=== PATIENT | female | born 1950 | race Caucasian/White ===

== ENCOUNTER 2020-06-09 15:13 | Outpatient (REF) | payer MEDICARE, SELFPAY ==
[2020-06-09 16:47] LABS: MANUAL DIFF FLAG NO
[2020-06-09 16:52] LABS: Basophils Percent Auto 0.5 % (0-2); Eosinophils Percent Auto 0.2 % (0-4); Hematocrit 42.9 % (37-47); Imm Gran Abs Auto 0.02 X10*3/uL (0.00-0.03); Imm Gran Pct Auto 0.2 % (0.0-0.4); Lymphocytes Absolute Auto 1.3 X10*3/uL (1.2-4.9); Lymphocytes Percent Auto 15.2 % (20-40); Mean Corpuscular HGB Conc 32.6 g/dl (31.0-35.0); Mean Corpuscular Hemoglobin 29.7 pg (27.0-33.0); Mean Corpuscular Volume 91.1 fL (80-98); Monocytes Absolute Auto 0.4 X10*3/uL (0.1-1.2); Neutrophils Absolute Auto 6.6 X10*3/uL (2.0-8.3); Neutrophils Percent Auto 78.9 % (45-73); Platelet Count 206 X10*3/uL (160-400); Red Blood Count 4.71 X10*6/uL (4.20-5.50); Red Cell Distribution Width 12.2 % (11.0-16.0); White Blood Count 8.4 X10*3/uL (4.8-10.8)
[2020-06-09 17:14] LABS: Alanine Aminotransferase 14 U/L (0-31); Albumin Level 4.5 g/dL (3.5-5.0); Alkaline Phosphatase 80 U/L (39-117); Anion Gap 19 (12-20); Aspartate Amino Transferase 19 U/L (5-31); Bilirubin Direct 0.2 mg/dL (0.0-0.5); Bilirubin Total 0.4 mg/dL (0.0-1.0); Blood Urea Nitrogen 18 mg/dL (9-16); Calcium 9.5 mg/dL (8.4-10.2); Carbon Dioxide 22 mmol/L (22-29); Chloride 105 mmol/L (96-108); Estimated Glomerular Filt Rate 56; Glucose Random 120 mg/dL (60-115); Potassium 4.9 mmol/l (3.3-5.1); Sodium 141 mmol/L (135-145)
[2020-06-09 17:27] LABS: TSH reflex Free T4 0.54 mIU/mL (0.32-4.0)
[2020-06-10 07:32] LABS: LDL Cholesterol Direct 101 mg/dL (<100)
== END 2020-06-09 15:14 | disposition home or self-care (01) ==
LOC: HO.HMGCLDS 15:13
PROVIDERS: PCP Internal Medicine; Visit Provider Internal Medicine
DX: E03.8 Other specified hypothyroidism (principal)
CPT/HCPCS: 36415; 80048; 80076; 83721; 84443; 85025

== ENCOUNTER 2020-12-05 10:55 | Outpatient (REF) | payer MEDICARE, SELFPAY ==
[2020-12-05 13:45] LABS: MANUAL DIFF FLAG NO
[2020-12-05 13:48] LABS: Basophils Percent Auto 0.5 % (0-2); Eosinophils Percent Auto 0.5 % (0-4); Hematocrit 44.9 % (37-47); Hemoglobin 14.5 g/dl (12.0-16.0); Imm Gran Abs Auto 0.02 X10*3/uL (0.00-0.03); Imm Gran Pct Auto 0.2 % (0.0-0.4); Lymphocytes Absolute Auto 1.4 X10*3/uL (1.2-4.9); Lymphocytes Percent Auto 17.7 % (20-40); Mean Corpuscular HGB Conc 32.3 g/dl (31.0-35.0); Mean Corpuscular Hemoglobin 29.8 pg (27.0-33.0); Mean Corpuscular Volume 92.2 fL (80-98); Mean Platelet Volume 12.1 fL (9.4-12.3); Monocytes Absolute Auto 0.6 X10*3/uL (0.1-1.2); Monocytes Percent Auto 7.9 % (2-11); Neutrophils Absolute Auto 5.9 X10*3/uL (2.0-8.3); Neutrophils Percent Auto 73.2 % (45-73); Platelet Count 220 X10*3/uL (160-400); Red Blood Count 4.87 X10*6/uL (4.20-5.50); Red Cell Distribution Width 12.7 % (11.0-16.0); White Blood Count 8.1 X10*3/uL (4.8-10.8)
[2020-12-05 13:54] LABS: Glucose Urine UA NEG (NEG); Leukocyte Esterase Urine NEG (NEG); Nitrite Urine NEG (NEG); Specific Gravity - Urine <= 1.005 (1.005-1.025); Urine Blood NEG (NEG); Urine Ketones NEG (NEG); Urine Protein NEG (NEG-TRACE)
[2020-12-05 14:02] LABS: Appearance Urine CLEAR; Color Urine YELLOW
[2020-12-05 14:04] LABS: Alanine Aminotransferase 14 U/L (0-31); Albumin Level 4.7 g/dL (3.5-5.0); Alkaline Phosphatase 92 U/L (39-117); Anion Gap 15 (12-20); Aspartate Amino Transferase 22 U/L (5-31); Bilirubin Total 0.6 mg/dL (0.0-1.0); Blood Urea Nitrogen 13 mg/dL (9-16); Calcium 10.2 mg/dL (8.4-10.2); Carbon Dioxide 26 mmol/L (22-29); Chloride 105 mmol/L (96-108); Estimated Glomerular Filt Rate 57; Glucose Random 82 mg/dL (60-115); Potassium 4.6 mmol/L (3.3-5.1); Sodium 141 mmol/L (135-145); Total Protein 7.4 g/dL (6.5-8.0)
[2020-12-05 14:25] LABS: TSH reflex Free T4 0.83 uIU/mL (0.32-4.0)
== END 2020-12-05 10:56 | disposition home or self-care (01) ==
LOC: HO.HMGCLDS 10:55
PROVIDERS: PCP Internal Medicine; Visit Provider Internal Medicine
DX: Z00.01 Encounter for general adult medical examination with abnormal findings (principal); Z13.31 Encounter for screening for depression; E03.8 Other specified hypothyroidism
CPT/HCPCS: 36415; 80053; 81003; 84443; 85025

== ENCOUNTER 2021-12-07 10:36 | Outpatient (REF) | payer MEDICARE, SELFPAY ==
[2021-12-07 13:41] LABS: MANUAL DIFF FLAG NO
[2021-12-07 13:51] LABS: Basophils Percent Auto 0.4 % (0-2); Eosinophils Absolute Auto 0.1 X10*3/uL (0.0-0.4); Eosinophils Percent Auto 0.7 % (0-4); Hematocrit 43.6 % (37.0-47.0); Hemoglobin 14.1 g/dl (12.0-16.0); Imm Gran Abs Auto 0.02 X10*3/uL (0.00-0.03); Imm Gran Pct Auto 0.3 % (0.0-0.4); Lymphocytes Absolute Auto 1.5 X10*3/uL (1.2-4.9); Lymphocytes Percent Auto 21.9 % (20-40); Mean Corpuscular HGB Conc 32.3 g/dl (31.0-35.0); Mean Corpuscular Hemoglobin 29.6 pg (27.0-33.0); Mean Corpuscular Volume 91.4 fL (80.0-98.0); Mean Platelet Volume 11.6 fL (9.4-12.3); Monocytes Absolute Auto 0.5 X10*3/uL (0.1-1.2); Monocytes Percent Auto 7.7 % (2-11); Neutrophils Absolute Auto 4.7 x10*3/uL (2.0-8.3); Platelet Count 219 X10*3/uL (160-400); Red Blood Count 4.77 X10*6/uL (4.20-5.50); Red Cell Distribution Width 12.7 % (11.0-16.0); White Blood Count 6.9 X10*3/uL (4.8-10.8)
[2021-12-07 14:07] LABS: Alanine Aminotransferase 15 U/L (0-31); Albumin Level 4.6 g/dL (3.5-5.0); Alkaline Phosphatase 82 U/L (39-117); Anion Gap 12 (12-20); Aspartate Amino Transferase 19 U/L (5-31); Bilirubin Total 0.5 mg/dL (0.0-1.0); Blood Urea Nitrogen 17 mg/dL (9-16); Calcium 9.8 mg/dL (8.4-10.2); Carbon Dioxide 25 mmol/L (22-29); Chloride 106 mmol/L (96-108); Estimated Glomerular Filt Rate > 60; Glucose Random 80 mg/dL (60-115); Sodium 138 mmol/L (135-145); Total Protein 7.1 g/dL (6.5-8.0)
[2021-12-07 14:27] LABS: TSH reflex Free T4 1.02 uIU/mL (0.32-4.0)
== END 2021-12-07 10:37 | disposition home or self-care (01) ==
LOC: HO.HMGCLDS 10:36
PROVIDERS: PCP Internal Medicine; Visit Provider Internal Medicine
DX: Z00.01 Encounter for general adult medical examination with abnormal findings (principal); E03.8 Other specified hypothyroidism
CPT/HCPCS: 36415; 80053; 84443; 85025

== ENCOUNTER 2022-01-04 09:21 | Outpatient (REF) | payer MEDICARE, SELFPAY ==
--- NOTE | ~2022-01-04 | MM_ITS ---
EXAMINATION: MM SCREENING DIGITAL BREAST TOMOSYNTHESIS, BILATERAL CLINICAL INFORMATION: Screening. Asymptomatic. The lifetime risk of breast cancer based on the Tyrer-Cuzick Model is 2.5%. COMPARISON: Mammography: January 01, 2019 and studies dating back to November 11, 2009 TECHNIQUE: Digital breast tomosynthesis is performed in both the craniocaudal and mediolateral oblique views along with computer-aided detection (CAD). Synthesized 2D images are generated from the tomosynthesis. FINDINGS: There are scattered areas of fibroglandular density (ACR BI-RADS breast composition Category b). There is a stable grouping of calcifications seen about the deep lateral aspect of the left breast. No new abnormal dominant mass or more suspicious grouping of microcalcifications is identified within the bilateral breast. MM/MM tomosynthesis screening BI IMPRESSION: No significant changes from prior exam. ASSESSMENT: BI-RADS 2: Benign RECOMMENDATION: Routine annual mammography screening. This patient's information was entered into a reminder system with a target due date for their next mammogram.
--- NOTE | ~2022-01-04 | MM_ITS ---
EXAMINATION: BONE DENSITOMETRY CLINICAL INDICATION: Screening. COMPARISON: Previous BD dated 12/19/2017 and baseline BD dated 08/18/2006. TECHNIQUE: Using a Spotivate DXA System (software version: 13.1) manufactured by [employer], dual-energy x-ray absorptiometry was performed of the lumbar spine and left hip. The images are of good technical quality. Summary results are attached. FINDINGS: AP SPINE L1-L4: Current: BMD 0.667 g/cm2, Z-score -2.0, T-score -4.3, osteoporosis, 9.6% decrease from previous, 13.8% decrease from baseline (<5% change is not significant). Prior: BMD 0.738 g/cm2. Baseline: BMD 0.774 g/cm2. LEFT FEMUR, NECK: Current: BMD 0.633 g/cm2, Z-score -0.7, T-score -2.9, osteoporosis. Prior: BMD 0.646 g/cm2. Baseline: BMD 0.696 g/cm2. LEFT FEMUR, TOTAL: Current: BMD 0.619 g/cm2, Z-score -1.1, T-score -3.1, osteoporosis, 5.9% decrease from previous, 15.1% decrease from baseline (<5% change is not significant). Prior: BMD 0.658 g/cm2. Baseline: BMD 0.729 g/cm2. IDENTIFIED RISK FACTORS: Menopause, osteoporosis. HISTORY OF FRACTURE: None listed. MEDICATIONS: Calcium, vitamin D. MM/XR DEXA axial skeleton IMPRESSION: 1. DIAGNOSIS: Osteoporosis based on the lowest T-score value of -4.3 in the lumbar spine applying World Health Organization criteria. 2. 10-YEAR FRACTURE RISK PREDICTION, FRAX: According to the guidelines, FRAX calculation should only be performed on patients in the osteopenia bone density category. Therefore, FRAX was not performed on this patient. 3. Treatment Recommendations: NOF guidelines recommend consideration for treatment in postmenopausal women and men age 50 and older presenting with the following: -A hip or vertebral (clinical or morphometric) fracture. -T-score less than or equal to -2.5 at the femoral neck or spine after appropriate evaluation to exclude secondary causes. -Low bone mass at the hip or spine and a 10-year fracture probability by FRAX of greater than or equal to 3% for hip fracture or greater than or equal to 20% for major osteoporotic fracture based on the [place] adapted WHO algorithm. 4. Other Recommendations: All treatment decisions require clinical judgment and consideration of individual patient factors, including patient preferences, comorbidities, previous drug use, risk factors not captured in the FRAX model (e.g. frailty, falls, vitamin D deficiency, increased bone turnover, interval significant decline in bone density) and possible under or overestimation of fracture risk by FRAX. Additional medical evaluation for secondary cause of low bone mineral density may be appropriate. FUTURE SCAN RECOMMENDATION: People with diagnosed cases of osteoporosis or at high risk for fracture should have regular bone mineral density tests. For patients eligible for Medicare, routine testing is allowed once every 2 years. The testing frequency can be increased to one year for patients who have rapidly progressing disease, those who are receiving or discontinuing medical therapy to restore bone mass, or have additional risk factors.
== END 2022-01-04 09:22 | disposition home or self-care (01) ==
LOC: HO.MAMMO 09:21
PROVIDERS: PCP Internal Medicine; Visit Provider Internal Medicine
DX: Z12.31 Encounter for screening mammogram for malignant neoplasm of breast (principal); Z13.820 Encounter for screening for osteoporosis; Z78.0 Asymptomatic menopausal state
CPT/HCPCS: 77063; 77067; 77080

== ENCOUNTER 2022-12-11 10:00 | Outpatient (AMB) | payer MEDICARE, SELFPAY ==
--- NOTE | 2022-12-11 10:04 | MHC.PC.OV ---
Vital Signs 12/11/22 10:05 Height 5 ft 1.5 in Weight 109 lb BMI 20.3 BP 110/72 Blood Pressure Location Rt brachial Position Sitting Pulse 66 Pulse Source Pulse Oximeter Pulse Oximetry (%) 96 Oxygen Delivery Method Room Air Intake Visit Reasons: PE Allergies cigarette smoke Allergy (Unknown, Uncoded 12/11/22 10:06) unknown Dust mites Allergy (Unknown, Uncoded 12/11/22 10:06) unknown Environmental Allergy (Unknown, Uncoded 12/11/22 10:06) unknown Medication List - Last Reconciled 12/11/22 by Nisreen Akers MD flu vac 2019 [id number](PF) 60 mcg (15 mcg x 4)/0.5 mL mL IM loratadine 10 mg PO DAILY 90 days multivitamin (Daily Multi-Vitamin tablet) 1 tab PO DAILY Synthroid (levothyroxine) 75 mcg PO DAILY 90 days NS Tobacco use date assessed: 12/11/22 Fall risk assessment: No Falls in past year Last assessed Fall Risk: 12/11/22 HPI PE HPI Details Patient is 72-year-old female came in for her and on physical exam Continued to decline for colonoscopy Mammogram is up-to-date due in December Due for labs Patient is taking Synthroid 75 mcg Allergies are stable she is also on loratadine 10 mg Offer no new complaints PFSH Surgical History No pertinent past surgical history Family History Father No problems noted. Mother Mental health disorder Substance use disorder Brother No problems noted. Sister No problems noted. Son No problems noted. Sister No problems noted. Social History Housing: Apartment Patient Tobacco Use Status: Former Tobacco user e-Cigarette/Vaping Use: Never Used Second Hand Smoke Exposure: Yes Current occupational status: retired Cognitive needs: No Hearing needs: No Vision needs: No Questionnaire Thrive Questionnaire Date Thrive assessed: 12/07/21 AUDIT C Alcohol Use Questionnaire (AUDIT-C) 1. How often do you have a drink containing alcohol?: Never 3. How often do you have six or more drinks on one occasion?: Never Total Score: 0 Score Reviewed/Action Taken: No ALFREDA-7 AMB Questionnaire ALFREDA-7 Date ALFREDA - 7 assessed: 12/07/21 Source: Developed by Drs. Genaro Montaño, Kathy Martin, Gordon Thorpe and colleagues, with an educational aletha from [employer]. Review of Systems Const Denies chills, Denies fever(s) and Denies headache(s) Eyes Denies blurry vision ENT Denies headache(s), Denies nasal discharge, Denies nasal obstruction, Denies odynophagia and Denies sinus pain Card Denies chest pain at rest and Denies chest pain with activity Resp Denies cough and Denies hemoptysis GI Denies diarrhea, Denies odynophagia, Denies vomiting and Denies hematemesis Reports as per HPI Musc Denies abnormal gait Skin/Breast Reports as per HPI Neuro Denies Neuro-related abnormal movements, Denies Abnormal speech present, Denies abnormal gait, Denies headache(s) and Denies Sensory deficit (Neuro) Psych Denies mood swings and Denies paranoia Endo Reports as per HPI Blake/Lymph Reports as per HPI Aller/Immun Reports as per HPI Physical exam (Primary Care) Vital Signs: Last Vital Signs Pulse 66 12/11/22 10:05 BP 110/72 12/11/22 10:05 Pulse Ox 96 12/11/22 10:05 Oxygen Delivery Method Room Air 12/11/22 10:05 BMI result Body Mass Index 20.3 Tobacco/Smoking Status: Tobacco use Status Tobacco use date assessed 12/11/22 12/11/22 10:08 Patient Tobacco Use Status Former Tobacco user 12/11/22 10:08 e-Cigarette/Vaping Use Never Used 12/11/22 10:08 Thrive Assessment: Date of Thrive Assessment Date Thrive assessed 12/07/21 12/11/22 10:08 Const General: cooperative, comfortable and no acute distress Orientation/consciousness: patient oriented x3 HENMT Head: Yes normocephalic and Yes atraumatic Eyes General: appearance normal, both eyes and all related structures Pupils: Equal, round and reactive pupils present EOM: EOMs intact bilaterally Neck Neck: Yes supple and No lymphadenopathy Thyroid: Thyroid normal Lymphatic: no lymphadenopathy noted Chest Breast/axilla palpation: normal palpation of the breasts Resp Effort & Inspection: normal respiratory effort and able to speak in complete sentences Auscultation: clear to auscultation bilaterally Cardio Heart sounds: S1 normal heart sound present and S2 normal heart sound present GI Palpation (GI): Soft to palpation and nontender Auscultation: normal bowel sounds General: Yes no CVA tenderness Back/Spine/Pelvis Back: no CVA tenderness Skin General skin exam: elasticity normal and turgor normal Neuro General: patient oriented x3 and gait normal Cranial nerves: Yes Equal, round and reactive pupils present Speech: No Abnormal speech present Sensory Exam: No Sensory deficit (Neuro) Coordination: tandem gait normal and Romberg test negative Extrem General: Yes normal exam except as noted and No edema Assessment and Plan Assessment & Plan (1) Encounter for general adult medical examination with abnormal findings: Code(s): Z00.01 - Encounter for general adult medical examination with abnormal findings (2) Other specified acquired hypothyroidism: Code(s): E03.8 - Other specified hypothyroidism Plan Patient is 72-year-old female came in for her and on physical exam Continued to decline for colonoscopy Mammogram is up-to-date due in December Due for labs Patient is taking Synthroid 75 mcg Allergies are stable she is also on loratadine 10 mg Offer no new complaints Orders: Orders Comprehensive [place]. Panel Fast Today E03.8 - Other specified hypothyroidism, Z00.01 - Encounter for general adult medical examination with abnormal findings Lipid Panel Today E03.8 - Other specified hypothyroidism, Z00.01 - Encounter for general adult medical examination with abnormal findings TSH reflex Free T4 Today E03.8 - Other specified hypothyroidism, Z00.01 - Encounter for general adult medical examination with abnormal findings Complete Blood Count Auto Diff Today E03.8 - Other specified hypothyroidism, Z00.01 - Encounter for general adult medical examination with abnormal findings MM tomosynthesis screening BI Today Z12.31 - Encounter for screening mammogram for malignant neoplasm of breast Medications: Refilled Synthroid (levothyroxine) 75 mcg PO DAILY 90 tabs 3RF 90 days NS Coding Level of Care Code Est Pt Prev Care >65y(12159) Diagnoses Encounter for general adult medical examination with abnormal findings Z00. Other specified acquired hypothyroidism E03.8
[2022-12-11 10:05] VITALS: BP 110/72; PULSE 66; O2SAT 96; BMI 20.3
== END 2022-12-11 10:20 | disposition home or self-care (01) ==
PROVIDERS: Visit Provider Internal Medicine
DX: Z00.01 Encounter for general adult medical examination with abnormal findings (principal); E03.8 Other specified hypothyroidism
CPT/HCPCS: 99397

== ENCOUNTER 2022-12-11 10:52 | Outpatient (REF) | payer MEDICARE, SELFPAY ==
[2022-12-11 13:13] LABS: MANUAL DIFF FLAG NO
[2022-12-11 13:35] LABS: Basophils Absolute Auto 0.1 X10*3/uL (0.0-0.2); Basophils Percent Auto 0.7 % (0-2); Eosinophils Absolute Auto 0.1 X10*3/uL (0.0-0.4); Eosinophils Percent Auto 0.7 % (0-4); Hematocrit 43.3 % (37.0-47.0); Hemoglobin 14.2 g/dl (12.0-16.0); Imm Gran Abs Auto 0.03 X10*3/uL (0.00-0.03); Imm Gran Pct Auto 0.4 % (0.0-0.4); Lymphocytes Absolute Auto 1.4 X10*3/uL (1.2-4.9); Lymphocytes Percent Auto 16.9 % (20-40); Mean Corpuscular HGB Conc 32.8 g/dl (31.0-35.0); Mean Corpuscular Hemoglobin 29.6 pg (27.0-33.0); Mean Corpuscular Volume 90.2 fL (80.0-98.0); Mean Platelet Volume 11.7 fL (9.4-12.3); Monocytes Absolute Auto 0.6 X10*3/uL (0.1-1.2); Monocytes Percent Auto 7.1 % (2-11); Neutrophils Percent Auto 74.2 % (45-73); Platelet Count 233 X10*3/uL (160-400); Red Cell Distribution Width 12.6 % (11.0-16.0)
== END 2022-12-11 10:53 | disposition home or self-care (01) ==
LOC: HO.HMGCLDS 10:52
PROVIDERS: PCP Internal Medicine; Visit Provider Internal Medicine
DX: Z00.01 Encounter for general adult medical examination with abnormal findings (principal); E03.8 Other specified hypothyroidism
CPT/HCPCS: 36415; 84443; 85025

== ENCOUNTER 2023-12-16 10:35 | Outpatient (AMB) | payer MEDICARE, SELFPAY ==
[2023-12-16 10:36] VITALS: BP 118/68; PULSE 66; O2SAT 95; BMI 18.5
--- NOTE | 2023-12-16 10:36 | MHC.PC.OV ---
Vital Signs 12/16/23 10:36 Height 5 ft 1.5 in Weight 99 lb 6 oz BMI 18.5 BP 118/68 Blood Pressure Location Rt brachial Position Sitting Pulse 66 Pulse Source Pulse Oximeter Pulse Oximetry (%) 95 Oxygen Delivery Method Room Air Intake Visit Reasons: PE Allergies cigarette smoke Allergy (Unknown, Uncoded 12/11/22 10:06) unknown Dust mites Allergy (Unknown, Uncoded 12/11/22 10:06) unknown Environmental Allergy (Unknown, Uncoded 12/11/22 10:06) unknown Medication List - Last Reconciled 12/16/23 by Nisreen Akers MD loratadine 10 mg PO DAILY 90 days multivitamin (Daily Multi-Vitamin tablet) 1 tab PO DAILY Synthroid (levothyroxine) 75 mcg PO DAILY 90 days NS Tobacco use date assessed: 12/16/23 Fall risk assessment: No Falls in past year Last assessed Fall Risk: 12/16/23 Dental Screening Dental Screen Date: 12/16/23 Did you have a dental visit in the last 12 months?: No Did you have a dental problem in the last 6 months where you did not have access to dental care?: No Was dental information given to patient?: No HPI PE HPI Details Patient is 73 year-old female came in for her and on physical exam Continued to decline for colonoscopy Mammogram is up-to-date due in December along with bone density, order placed Due for labs Patient is taking Synthroid 75 mcg Allergies are stable she is also on loratadine 10 mg Has not seen eye doctor while, encouraged patient to book appointment [facility] Surgical History No pertinent past surgical history Family History Father No problems noted. Mother Mental health disorder Substance use disorder Brother No problems noted. Sister No problems noted. Son No problems noted. Sister No problems noted. Social History Housing: Apartment Patient Tobacco Use Status: Former Tobacco user e-Cigarette/Vaping Use: Never Used Second Hand Smoke Exposure: Yes Current occupational status: retired Cognitive needs: No Hearing needs: No Vision needs: No Questionnaire PHQ-9 Over the last 2 weeks, how often have you been bothered by any of the following problems? 1. Little interest or pleasure in doing things: not at all 2. Feeling down, depressed, or hopeless: not at all 3. Trouble falling or staying asleep, or sleeping too much: not at all 4. Feeling tired or having little energy: not at all 5. Poor appetite or overeating: not at all 6. Feeling bad about yourself - or that you are a failure or have let yourself or your family down: not at all 7. Trouble concentrating on things, such as reading the newspaper or watching television: not at all 8. Moving or speaking so slowly that other people could have noticed. Or the opposite - being so fidgety or restless that you have been moving around a lot more than usual: not at all 9. Thoughts that you would be better off or of hurting yourself in some way: not at all Total score: 0 Depression Screening Interpretation: Negative Depression Screening Done: Yes 95120 - PHQ-9 Billing: Yes Source: Developed by Drs. Genaro Montaño, Kathy Martin, Gordon Thorpe and colleagues, with an educational aletha from [employer]. Thrive Questionnaire Date Thrive assessed: 12/16/23 I am a: Patient What is your living situation today?: I have a steady place to live Within the past 12 months, did the food you bought not last and you didn't have the money to get more?: Never true Within the past 12 months, did you worry whether your food would run out before you got money to buy more?: Never true Do you have trouble paying for medicines?: No Do you have trouble getting transportation to medical appointments?: No Do you have trouble paying your heating and electricity bill?: No Do you have trouble taking care of your child, family member or friend?: No Do you have trouble with day-to-day activities such as bathing, preparing meals, shopping, managing finances, etc.?: No Are you currently unemployed and looking for a job?: No Are you interested in more education?: No Please select the resources that you would like help with: None Currently or been in a relationship where the following occur: No concerns reported THRIVE Score: 0 AUDIT C Alcohol Use Questionnaire (AUDIT-C) 1. How often do you have a drink containing alcohol?: Never 3. How often do you have six or more drinks on one occasion?: Never Total Score: 0 Score Reviewed/Action Taken: Yes ALFREDA-7 AMB Questionnaire ALFREDA-7 Date ALFREDA - 7 assessed: 12/16/23 Feeling nervous, anxious, or on edge: 0 = Not at all Not being able to stop or control worryin = Not at all Worrying too much about different things: 0 = Not at all Trouble relaxin = Not at all Being so restless that it is hard to sit still: 0 = Not at all Becoming easily annoyed or irritable: 0 = Not at all Feeling afraid as if something awful might happen: 0 = Not at all Total ALFREDA-7 score (0-4 normal; 5-9 mild; 10-14 moderate; 15-21 severe): 0 Source: Developed by Drs. Genaro Montaño, Kathy Martin, Gordon Thorpe and colleagues, with an educational aletha from [employer]. ALFREDA-7 Assessment Billing ALFREDA-7 Assessment Tool: ALFREDA-7 Assessment 81281 Review of Systems Const Denies chills, Denies fever(s) and Denies headache(s) ENT Denies headache(s), Denies nasal discharge, Denies nasal obstruction, Denies odynophagia and Denies sinus pain Card Denies chest pain at rest and Denies chest pain with activity Resp Denies cough and Denies hemoptysis GI Denies diarrhea, Denies odynophagia, Denies vomiting and Denies hematemesis Reports as per HPI Musc Denies abnormal gait Skin/Breast Reports as per HPI Neuro Denies Neuro-related abnormal movements, Denies Abnormal speech present, Denies abnormal gait, Denies headache(s) and Denies Sensory deficit (Neuro) Psych Denies mood swings and Denies paranoia Endo Reports as per HPI Blake/Lymph Reports as per HPI Aller/Immun Reports as per HPI Physical exam (Primary Care) Vital Signs: Last Vital Signs Pulse 66 12/16/23 10:36 BP 118/68 12/16/23 10:36 Pulse Ox 95 12/16/23 10:36 Oxygen Delivery Method Room Air 12/16/23 10:36 BMI result Body Mass Index 18.5 Tobacco/Smoking Status: Tobacco use Status Tobacco use date assessed 12/16/23 12/16/23 10:45 Patient Tobacco Use Status Former Tobacco user 12/16/23 10:45 e-Cigarette/Vaping Use Never Used 12/16/23 10:45 Depression Screening Interpretation: Negative Thrive Assessment: Date of Thrive Assessment Date Thrive assessed 12/16/23 12/16/23 11:11 Currently or been in a relationship where the following occur: No concerns reported Const General: cooperative, comfortable and no acute distress Orientation/consciousness: patient oriented x3 HENMT Head: Yes normocephalic and Yes atraumatic Eyes General: appearance normal, both eyes and all related structures Pupils: Equal, round and reactive pupils present EOM: EOMs intact bilaterally Neck Neck: Yes supple and No lymphadenopathy Thyroid: Thyroid normal Lymphatic: no lymphadenopathy noted Chest Breast/axilla palpation: normal palpation of the breasts Resp Effort & Inspection: normal respiratory effort and able to speak in complete sentences Auscultation: clear to auscultation bilaterally Cardio Heart sounds: S1 normal heart sound present and S2 normal heart sound present GI Palpation (GI): Soft to palpation and nontender Auscultation: normal bowel sounds General: Yes no CVA tenderness Back/Spine/Pelvis Back: no CVA tenderness Skin General skin exam: elasticity normal and turgor normal Neuro General: patient oriented x3 and gait normal Cranial nerves: Yes Equal, round and reactive pupils present Speech: No Abnormal speech present Sensory Exam: No Sensory deficit (Neuro) Coordination: tandem gait normal and Romberg test negative Extrem General: Yes normal exam except as noted and No edema Assessment and Plan Assessment & Plan (1) Annual physical exam: Code(s): Z00.00 - Encounter for general adult medical examination without abnormal findings (2) Other specified acquired hypothyroidism: Code(s): E03.8 - Other specified hypothyroidism (3) Menopause: Code(s): Z78.0 - Asymptomatic menopausal state (4) Colonoscopy refused: Code(s): Z53.20 - Procedure and treatment not carried out because of patient's decision for unspecified reasons Plan Patient is 73 year-old female came in for her and on physical exam Continued to decline for colonoscopy Mammogram is up-to-date due in December along with bone density, order placed Due for labs Patient is taking Synthroid 75 mcg Allergies are stable she is also on loratadine 10 mg Has not seen eye doctor while, encouraged patient to book appointment Orders: Orders TSH reflex Free T4 Today E03.8 - Other specified hypothyroidism, Z00.01 - Encounter for general adult medical examination with abnormal findings Lipid Panel Today E03.8 - Other specified hypothyroidism, Z00.01 - Encounter for general adult medical examination with abnormal findings Vitamin D 25-OH (D2 and D3) Today E03.8 - Other specified hypothyroidism, Z00.01 - Encounter for general adult medical examination with abnormal findings MM tomosynthesis screening BI Today Z12.31 - Encounter for screening mammogram for malignant neoplasm of breast, Z78.0 - Asymptomatic menopausal state XR DEXA axial skeleton Today Z12.31 - Encounter for screening mammogram for malignant neoplasm of breast, Z78.0 - Asymptomatic menopausal state Complete Blood Count Auto Diff Today E03.8 - Other specified hypothyroidism, Z00.01 - Encounter for general adult medical examination with abnormal findings Comprehensive [place]. Panel Fast Today E03.8 - Other specified hypothyroidism, Z00.01 - Encounter for general adult medical examination with abnormal findings Medications: Refilled loratadine 10 mg PO DAILY 90 days 90 tabs 1RF Synthroid (levothyroxine) 75 mcg PO DAILY 90 days 90 tabs 3RF NS Coding Level of Care Code Est Pt Prev Care >65y(57741) Diagnoses Annual physical exam Z00.00 Other specified acquired hypothyroidism E03.8 Menopause Z78.0 Colonoscopy refused Z53.20 Additional Codes ALFREDA-7 Assessment Billing - ALFREDA-7 Assessment Tool: ALFREDA-7 Assessment [id number] ([id number])
== END 2023-12-16 11:08 | disposition home or self-care (01) ==
PROVIDERS: Visit Provider Internal Medicine
DX: Z00.00 Encounter for general adult medical examination without abnormal findings (principal); E03.8 Other specified hypothyroidism; Z78.0 Asymptomatic menopausal state; Z53.20 Procedure and treatment not carried out because of patient's decision for unspecified reasons
CPT/HCPCS: 99397

== ENCOUNTER 2023-12-18 08:07 | Outpatient (REF) | payer MEDICARE, SELFPAY ==
[2023-12-18 10:06] LABS: MANUAL DIFF FLAG NO
[2023-12-18 10:11] LABS: Basophils Absolute Auto 0.1 X10*3/uL (0.0-0.2); Basophils Percent Auto 0.9 % (0-2); Eosinophils Absolute Auto 0.1 X10*3/uL (0.0-0.4); Eosinophils Percent Auto 1.5 % (0-4); Hematocrit 42.1 % (37.0-47.0); Imm Gran Abs Auto 0.01 X10*3/uL (0.00-0.03); Imm Gran Pct Auto 0.2 % (0.0-0.4); Mean Corpuscular HGB Conc 33.3 g/dl (31.0-35.0); Mean Corpuscular Hemoglobin 30.1 pg (27.0-33.0); Mean Corpuscular Volume 90.5 fL (80.0-98.0); Mean Platelet Volume 11.3 fL (9.4-12.3); Monocytes Absolute Auto 0.5 X10*3/uL (0.1-1.2); Monocytes Percent Auto 6.9 % (2-11); Neutrophils Percent Auto 60.5 % (45-73); Platelet Count 230 X10*3/uL (160-400); Red Blood Count 4.65 X10*6/uL (4.20-5.50); Red Cell Distribution Width 12.9 % (11.0-16.0); White Blood Count 6.5 X10*3/uL (4.8-10.8)
[2023-12-18 10:30] LABS: Alanine Aminotransferase 16 U/L (0-31); Albumin Level 4.2 g/dL (3.5-5.0); Alkaline Phosphatase 72 U/L (39-117); Anion Gap 11 (12-20); Aspartate Amino Transferase 18 U/L (5-31); Bilirubin Total 0.4 mg/dL (0.0-1.0); Blood Urea Nitrogen 15 mg/dL (9-16); Calcium 9.7 mg/dL (8.4-10.2); Carbon Dioxide 26 mmol/L (22-29); Chloride 109 mmol/L (96-108); Cholesterol 164 mg/dL (<200); Estimated Glomerular Filt Rate 60; Glucose Fasting 101 mg/dL (60-99); HDL Cholesterol 57 mg/dL (>40); LDL Cholesterol Calculated 91 mg/dL (<100); Potassium 4.2 mmol/L (3.3-5.1); Sodium 142 mmol/L (135-145); Total Protein 6.7 g/dL (6.5-8.0); Triglycerides 81 mg/dL (<150)
[2023-12-18 10:50] LABS: TSH reflex Free T4 1.06 uIU/mL (0.32-4.0)
[2023-12-24 14:54] LABS: Vitamin D 25-OH, D2 <4 ng/mL; Vitamin D 25-OH, D3 37 ng/mL; Vitamin D 25-OH, Total 37 ng/mL (30-100)
== END 2023-12-18 08:08 | disposition home or self-care (01) ==
LOC: HO.HMGCLDS 08:07
PROVIDERS: PCP Internal Medicine; Visit Provider Internal Medicine
DX: Z00.01 Encounter for general adult medical examination with abnormal findings (principal); E03.8 Other specified hypothyroidism
CPT/HCPCS: 36415; 80053; 80061; 82306; 84443; 85025

== ENCOUNTER → 2024-01-07 10:15 | Outpatient (BNV) | payer MEDICARE, SELFPAY | PROVIDERS: PCP Internal Medicine; Visit Provider Internal Medicine | DX: Z12.31 Encounter for screening mammogram for malignant neoplasm of breast (principal) | CPT/HCPCS: 77063; 77067 ==

== ENCOUNTER 2024-01-07 10:18 | Outpatient (REF) | payer MEDICARE, SELFPAY ==
--- NOTE | ~2024-01-07 | MM_ITS ---
EXAMINATION: MM SCREENING DIGITAL BREAST TOMOSYNTHESIS, BILATERAL CLINICAL INFORMATION: Screening. Asymptomatic. COMPARISON: Mammography: Comparison is made with available priors. TECHNIQUE: Digital breast tomosynthesis is performed in both the craniocaudal and mediolateral oblique views along with computer-aided detection (CAD). Synthesized 2D images are generated from the tomosynthesis. FINDINGS: There are scattered areas of fibroglandular density (ACR BI-RADS breast composition Category b). There are no significant masses, abnormal calcifications, or other abnormalities. MM/MM tomosynthesis screening BI IMPRESSION: No mammographic evidence of malignancy. ASSESSMENT: BI-RADS BI-RADS 1 - Negative RECOMMENDATION: Routine annual mammography screening. 1 year F/U This examination should not preclude the clinical evaluation of a suspicious palpable abnormality. This patient's information was entered into a reminder system with a target due date for their next mammogram. Electronically signed by: Glenda Alvarez DO 02/04/2024 08:57 PM EDT
--- NOTE | ~2024-01-07 | MM_ITS ---
EXAMINATION: BONE DENSITOMETRY CLINICAL INDICATION: Menopause. COMPARISON: Previous BD dated 01/04/2022 and baseline BD dated 08/18/2006. TECHNIQUE: Using a DLC DXA System (software version: 13.1) manufactured by [employer], dual-energy x-ray absorptiometry was performed of the lumbar spine and left hip. The images are of good technical quality. Summary results are attached. FINDINGS: LEFT FEMUR, NECK: Current: BMD 0.666 g/cm2, Z-score -0.4, T-score -2.7, osteoporosis. Prior: BMD 0.633 g/cm2. Baseline: BMD 0.696 g/cm2. LEFT FEMUR, TOTAL: Current: BMD 0.616 g/cm2, Z-score -1.0, T-score -3.1, osteoporosis, 0.5% decrease from previous, 15.5% decrease from baseline (<5% change is not significant). Prior: BMD 0.619 g/cm2. Baseline: BMD 0.729 g/cm2. AP SPINE L1-L4: Current: BMD 0.652 g/cm2, Z-score -2.0, T-score -4.4, osteoporosis, 2.2% decrease from previous, 15.8% decrease from baseline (<5% change is not significant). Prior: BMD 0.667 g/cm2. Baseline: BMD 0.774 g/cm2. IDENTIFIED RISK FACTORS: Menopause, osteoporosis. HISTORY OF FRACTURE: None listed. MEDICATIONS: Calcium, vitamin D. MM/XR DEXA axial skeleton IMPRESSION: 1. DIAGNOSIS: Osteoporosis based on the lowest T-score value of -4.4 in the lumbar spine applying World Health Organization criteria. 2. 10-YEAR FRACTURE RISK PREDICTION, FRAX: According to the guidelines, FRAX calculation should only be performed on patients in the osteopenia bone density category. Therefore, FRAX was not performed on this patient. 3. Treatment Recommendations: NOF guidelines recommend consideration for treatment in postmenopausal women and men age 50 and older presenting with the following: -A hip or vertebral (clinical or morphometric) fracture. -T-score less than or equal to -2.5 at the femoral neck or spine after appropriate evaluation to exclude secondary causes. -Low bone mass at the hip or spine and a 10-year fracture probability by FRAX of greater than or equal to 3% for hip fracture or greater than or equal to 20% for major osteoporotic fracture based on the [place] adapted WHO algorithm. 4. Other Recommendations: All treatment decisions require clinical judgment and consideration of individual patient factors, including patient preferences, comorbidities, previous drug use, risk factors not captured in the FRAX model (e.g. frailty, falls, vitamin D deficiency, increased bone turnover, interval significant decline in bone density) and possible under or overestimation of fracture risk by FRAX. Additional medical evaluation for secondary cause of low bone mineral density may be appropriate. FUTURE SCAN RECOMMENDATION: People with diagnosed cases of osteoporosis or at high risk for fracture should have regular bone mineral density tests. For patients eligible for Medicare, routine testing is allowed once every 2 years. The testing frequency can be increased to one year for patients who have rapidly progressing disease, those who are receiving or discontinuing medical therapy to restore bone mass, or have additional risk factors. Electronically signed by: Nazario Rae MD 01/14/2024 08:58 AM EDT
== END 2024-01-07 10:19 | disposition home or self-care (01) ==
LOC: HO.MAMMO 10:18
PROVIDERS: PCP Internal Medicine; Visit Provider Internal Medicine
DX: Z12.31 Encounter for screening mammogram for malignant neoplasm of breast (principal); Z13.820 Encounter for screening for osteoporosis; Z78.0 Asymptomatic menopausal state
CPT/HCPCS: 77063; 77067; 77080

== ENCOUNTER 2024-12-29 11:03 | Outpatient (AMB) | payer MEDICARE, SELFPAY ==
[2024-12-29 11:06] VITALS: BP 110/62; PULSE 64; O2SAT 97; BMI 19.0
--- NOTE | 2024-12-29 11:06 | A.OFFPC_ITS ---
Vital Signs 12/29/24 11:06 Height 5 ft 1.5 in Weight 102 lb BMI 19.0 BP 110/62 Blood Pressure Location Lt brachial Position Sitting Pulse 64 Pulse Source Pulse Oximeter Pulse Oximetry (%) 97 Oxygen Delivery Method Room Air Intake Visit Reasons: annual exam Allergies cigarette smoke Allergy (Unknown, Uncoded 12/29/24 11:06) unknown Dust mites Allergy (Unknown, Uncoded 12/29/24 11:06) unknown Environmental Allergy (Unknown, Uncoded 12/29/24 11:06) unknown Medication List - Last Reconciled 12/29/24 by Nisreen Akers MD loratadine 10 mg PO DAILY 90 days multivitamin (Daily Multi-Vitamin tablet) 1 tab PO DAILY Synthroid (levothyroxine) 75 mcg PO DAILY 90 days NS Tobacco use date assessed: 12/29/24 Fall risk assessment: No Falls in past year Last assessed Fall Risk: 12/29/24 Dental Screening Dental Screen Date: 12/29/24 Did you have a dental visit in the last 12 months?: Yes Did you have a dental problem in the last 6 months where you did not have access to dental care?: No Was dental information given to patient?: Patient has dentist HPI annual exam HPI Details History of Present Illness The patient is a 74-year-old female came in for physical examination, presenting with anxiety and health maintenance concerns. Anxiety: - The patient reports feeling anxious, p articularly exacerbated by weather changes and various responsibilities. - Mentions difficulty in completing task s and managing health-related appointments. - Experience periodic episodes of feelin g overwhelmed. Osteoporosis: - History of osteoporosis noted with pas t bone density tests indicating weak bones. - Previous osteoporosis management inclu ded Fosamax use for over five years without significant improvements. - Concerns about potential fracture risk due to living on the second floor. Allergies: - Reports having pollen allergies. - Experiences episodes of inadequate law n maintenance leading to discomfort due to pollen. - Currently taking loratadine for sympto m management. Mammogram: - Last mammogram was in December of the pr evious year, due for current screening. - Experiences confusion regarding insura nce coverage affecting adherence to screening schedules. Medical History: - Anxiety - Osteoporosis - Osteoarthritis - Pollen allergies Social History: - The patient resides in an apartment, r eporting issues with temperature regulation affecting comfort Health Maintenance - Mammogram due for current period; last performed in [place] of the previous year. - Encouraged to maintain routine exercis es and kfext-bq-mwiuvq activities to support bone health. - Consideration of injectable options fo r osteoporosis management discussed. - Recommended stronger flu vaccine (yi or dose) and addressed potential COVID vaccination based on living environment. -Cologuard was ordered with the patient last visit but she never pursued - Schedule and complete a mammogram as i t is now due. - Continue taking current medications (l oratadine and Synthroid). - Consider flu vaccine at the pharmacy d ue to stronger dose needed. - Evaluate Prevnar 20 vaccine status [facility] for pneumonia. - Engage in regular physical activities and vuodk-oh-opeuvu exercises at home. - Consider potential osteoporosis inject ion treatment with a specialist if needed. Review of Systems - General: No fever no chills - Neurological: No headaches no dizzin ess - Ear nose throat: No sore throat no hearing difficulty no ear pain - Cardiovascular: No syncope, no chest pain, no palpitations - Gastrointestinal: No nausea vomiting or diarrhea - Endocrine: No polyuria polydipsia no heat intolerance - Genitourinary: No dysuria - Skin: No new complaints Physical Exam General: Cooperative, healthy appearing, comfortable, no acute distress Orientation: Patient oriented x3 Head: Normal to inspection Ears: Within normal limit visually Nose: Normal external nose present Face and sinus: Normal facial exam Eyes: Appearance normal, extraocular movement intact pupils reactive Neck: Normal visual inspection and supple Respiratory: Normal respiratory effort and able to speak in complete sentences. Clear to auscultation, no stridor Cardiovascular: S1 and S2 RRR, heart sounds fine Breast exam benign GI: Normal to inspection. Soft to palpation and nontender, no pain in the belly Skin: Turgor normal, no acute findings, some crape-like texture due to normal aging Neuro: Patient oriented x3, motor sensory intact, balance intact, tandem pass Extremities: Normal to inspection, range of motion intact [facility] Surgical History No pertinent past surgical history Family History Father No problems noted. Mother Mental health disorder Substance use disorder Brother No problems noted. Sister No problems noted. Son No problems noted. Sister No problems noted. Social History Housing: Apartment Patient Tobacco Use Status: Former Tobacco user e-Cigarette/Vaping Use: Never Used Second Hand Smoke Exposure: Yes Current occupational status: retired Cognitive needs: No Hearing needs: No Vision needs: No Questionnaire PHQ-9 Over the last 2 weeks, how often have you been bothered by any of the following problems? 1. Little interest or pleasure in doing things: several days 2. Feeling down, depressed, or hopeless: several days 3. Trouble falling or staying asleep, or sleeping too much: not at all 4. Feeling tired or having little energy: several days 5. Poor appetite or overeating: not at all 6. Feeling bad about yourself - or that you are a failure or have let yourself or your family down: not at all 7. Trouble concentrating on things, such as reading the newspaper or watching television: several days 8. Moving or speaking so slowly that other people could have noticed. Or the opposite - being so fidgety or restless that you have been moving around a lot more than usual: not at all 9. Thoughts that you would be better off or of hurting yourself in some way: not at all Total score: 4 Depression Screening Interpretation: Negative Depression Screening Done: Yes 71360 - PHQ-9 Billing: Yes Source: Developed by Drs. Genaro Montaño, Kathy Martin, Gordon Thorpe and colleagues, with an educational aletha from [email or web address]. Thrive Questionnaire Date Thrive assessed: 12/29/24 I am a: Patient What is your living situation today?: I have a steady place to live Within the past 12 months, did the food you bought not last and you didn't have the money to get more?: Never true Within the past 12 months, did you worry whether your food would run out before you got money to buy more?: Never true Do you have trouble paying for medicines?: No Do you have trouble getting transportation to medical appointments?: No Do you have trouble paying your heating and electricity bill?: No Do you have trouble taking care of your child, family member or friend?: No Do you have trouble with day-to-day activities such as bathing, preparing meals, shopping, managing finances, etc.?: No Are you currently unemployed and looking for a job?: No Are you interested in more education?: No Please select the resources that you would like help with: None Currently or been in a relationship where the following occur: No concerns reported THRIVE Score: 0 AUDIT C Alcohol Use Questionnaire (AUDIT-C) 1. How often do you have a drink containing alcohol?: Never 3. How often do you have six or more drinks on one occasion?: Never Total Score: 0 Score Reviewed/Action Taken: Yes ALFREDA-7 AMB Questionnaire ALFREDA-7 Date ALFREDA - 7 assessed: 12/29/24 Feeling nervous, anxious, or on edge: 2 = More than half the days Not being able to stop or control worryin = Several days Worrying too much about different things: 1 = Several days Trouble relaxin = More than half the days Being so restless that it is hard to sit still: 1 = Several days Becoming easily annoyed or irritable: 1 = Several days Feeling afraid as if something awful might happen: 2 = More than half the days Total ALFREDA-7 score (0-4 normal; 5-9 mild; 10-14 moderate; 15-21 severe): 10 Source: Developed by Drs. Genaro Montaño, Kathy Martin, Gordon Thorpe and colleagues, with an educational aletha from [email or web address]. ALFREDA-7 Assessment Billing ALFREDA-7 Assessment Tool: ALFREDA-7 Assessment 42091 Physical exam (Primary Care) Vital Signs: Last Vital Signs Pulse 64 12/29/24 11:06 BP 110/62 12/29/24 11:06 Pulse Ox 97 12/29/24 11:06 Oxygen Delivery Method Room Air 12/29/24 11:06 BMI result Body Mass Index 19.0 Tobacco/Smoking Status: Tobacco use Status Tobacco use date assessed 12/29/24 12/29/24 11:12 Patient Tobacco Use Status Former Tobacco user 12/29/24 11:12 e-Cigarette/Vaping Use Never Used 12/29/24 11:12 PHQ-9: PHQ-9 Score PHQ-9: Total score 4 12/29/24 11:41 Depression Screening Interpretation: Negative Thrive Assessment: Date of Thrive Assessment Date Thrive assessed 08/13/25 08/13/25 11:12 Currently or been in a relationship where the following occur: No concerns reported Coding Level of Care Code Est Pt Level 3 (41881) Est Pt Prev Care >65y(29547) Diagnoses Encounter for general adult medical examination with abnormal findings Z00.01 Other specified acquired hypothyroidism E03.8 Major depressive disorder, severe F32.2 Osteoporosis M81.0 Environmental allergies Z91.09 Anxiety, generalized F41.1 Additional Codes ALFREDA-7 Assessment Billing - ALFREDA-7 Assessment Tool: ALFREDA-7 Assessment 28037 ([id number]) PHQ-9 - 52834 - PHQ-9 Billing: Yes ([id number]) Assessment & Plan Assessment & Plan (1) Encounter for general adult medical examination with abnormal findings: Code(s): Z00.01 - Encounter for general adult medical examination with abnormal findings Category: Medical (2) Other specified acquired hypothyroidism: Code(s): E03.8 - Other specified hypothyroidism Category: Medical (3) Major depressive disorder, severe: Code(s): F32.2 - Major depressive disorder, single episode, severe without psychotic features Category: Medical (4) Osteoporosis: Code(s): M81.0 - Age-related osteoporosis without current pathological fracture Category: Medical (5) Environmental allergies: Code(s): Z91.09 - Other allergy status, other than to drugs and biological substances Category: Medical (6) Anxiety, generalized: Code(s): F41.1 - Generalized anxiety disorder Category: Medical Plan History of Present Illness The patient is a 74-year-old female came in for physical examination, presenting with anxiety and health maintenance concerns. Anxiety: - The patient reports feeling anxious, particularly exacerbated by weather changes and various responsibilities. - Mentions difficulty in completing tasks and managing health-related appointments. - Experience periodic episodes of feeling overwhelmed. Osteoporosis: - History of osteoporosis noted with past bone density tests indicating weak bones. - Previous osteoporosis management included Fosamax use for over five years without significant improvements. - Concerns about potential fracture risk due to living on the second floor. Allergies: - Reports having pollen allergies. - Experiences episodes of inadequate lawn maintenance leading to discomfort due to pollen. - Currently taking loratadine for symptom management. Mammogram: - Last mammogram was in December of the previous year, due for current screening. - Experiences confusion regarding insurance coverage affecting adherence to screening schedules. Medical History: - Anxiety - Osteoporosis - Osteoarthritis - Pollen allergies Social History: - The patient resides in an apartment, reporting issues with temperature regulation affecting comfort Health Maintenance - Mammogram due for current period; last performed in December of the previous year. - Encouraged to maintain routine exercises and dqmfq-qb-bnshtu activities to support bone health. - Consideration of injectable options for osteoporosis management discussed. - Recommended stronger flu vaccine (senior dose) and addressed potential COVID vaccination based on living environment. -Cologuard was ordered with the patient last visit but she never pursued - Schedule and complete a mammogram as it is now due. - Continue taking current medications (loratadine and Synthroid). - Consider flu vaccine at the pharmacy due to stronger dose needed. - Evaluate Prevnar 20 vaccine status with pharmacy for pneumonia. - Engage in regular physical activities and balll-re-ujtfkn exercises at home. - Consider potential osteoporosis injection treatment with a specialist if needed. Orders: Orders Complete Blood Count Auto Diff Today E03.8 - Other specified hypothyroidism, F32.2 - Major depressive disorder, single episode, severe without psychotic features, Z00.01 - Encounter for general adult medical examination with abnormal findings Comprehensive Met. Panel Today E03.8 - Other specified hypothyroidism, F32.2 - Major depressive disorder, single episode, severe without psychotic features, Z00.01 - Encounter for general adult medical examination with abnormal findings LDL Cholesterol Direct Today E03.8 - Other specified hypothyroidism, F32.2 - Major depressive disorder, single episode, severe without psychotic features, Z00.01 - Encounter for general adult medical examination with abnormal findings Hemoglobin A1c Today E03.8 - Other specified hypothyroidism, F32.2 - Major depressive disorder, single episode, severe without psychotic features, Z00.01 - Encounter for general adult medical examination with abnormal findings TSH reflex Free T4 Today E03.8 - Other specified hypothyroidism, F32.2 - Major depressive disorder, single episode, severe without psychotic features, Z00.01 - Encounter for general adult medical examination with abnormal findings MM tomosynthesis screening BI Today Z12.31 - Encounter for screening mammogram for malignant neoplasm of breast Medications: Changed From Synthroid (levothyroxine) 75 mcg PO DAILY 90 days 90 tabs 3RF NS To levothyroxine (Synthroid) 75 mcg PO DAILY 90 tabs 3RF 90 days Refilled loratadine 10 mg PO DAILY 90 tabs 1RF 90 days
== END 2024-12-29 12:08 | disposition home or self-care (01) ==
LOC: HO.HMCC 11:03
PROVIDERS: PCP Internal Medicine; Visit Provider Internal Medicine
DX: Z00.01 Encounter for general adult medical examination with abnormal findings (principal); E03.8 Other specified hypothyroidism; F32.2 Major depressive disorder, single episode, severe without psychotic features; M81.0 Age-related osteoporosis without current pathological fracture; Z91.09 Other allergy status, other than to drugs and biological substances; F41.1 Generalized anxiety disorder

== ENCOUNTER 2024-12-29 11:03 | Outpatient (REF) | payer MEDICARE, SELFPAY ==
[2024-12-29 13:24] LABS: MANUAL DIFF FLAG NO
[2024-12-29 13:46] LABS: Hematocrit 43.7 % (37.0-47.0); Hemoglobin 14.7 g/dl (12.0-16.0); Imm Gran Abs Auto 0.05 X10*3/uL (0.00-0.03); Imm Gran Pct Auto 0.6 % (0.0-0.4); Lymphocytes Absolute Auto 1.6 X10*3/uL (1.2-4.9); Mean Corpuscular HGB Conc 33.6 g/dl (31.0-35.0); Mean Corpuscular Hemoglobin 30.2 pg (27.0-33.0); Mean Corpuscular Volume 89.9 fL (80.0-98.0); NRBC Abs Auto 0.000 X10*3/uL (0.0-0.012); NRBC Pct Auto 0.0 /100WBC (0.0-0.2); Platelet Count 257 X10*3/uL (160-400); Red Blood Count 4.86 X10*6/uL (4.20-5.50); White Blood Count 8.8 X10*3/uL (4.8-10.8)
[2024-12-29 13:55] LABS: Hemoglobin A1C 142.1732 umol/L; Total Hemoglobin (HGBA1C) 3873.4914 umol/L
[2024-12-29 14:20] LABS: Albumin Level 4.9 g/dL (3.5-5.0); Alkaline Phosphatase 92 U/L (39-117); Anion Gap 15 (12-20); Aspartate Amino Transferase 47 U/L (5-31); Blood Urea Nitrogen 16 mg/dL (9-16); Calcium 10.1 mg/dL (8.4-10.2); Carbon Dioxide 26 mmol/L (22-29); Chloride 104 mmol/L (96-108); Estimated Glomerular Filt Rate > 60; Potassium 4.8 mmol/L (3.3-5.1); Sodium 140 mmol/L (135-145); Total Protein 7.7 g/dL (6.5-8.0)
[2024-12-29 14:25] LABS: Alanine Aminotransferase 45 U/L (0-31)
== END 2024-12-29 11:04 | disposition home or self-care (01) ==
LOC: HO.HMGCLDS 11:03
PROVIDERS: PCP Internal Medicine; Visit Provider Internal Medicine
DX: Z00.01 Encounter for general adult medical examination with abnormal findings (principal); Z13.1 Encounter for screening for diabetes mellitus; E03.8 Other specified hypothyroidism; F32.2 Major depressive disorder, single episode, severe without psychotic features; M81.0 Age-related osteoporosis without current pathological fracture; F41.1 Generalized anxiety disorder; Z91.09 Other allergy status, other than to drugs and biological substances; Z87.891 Personal history of nicotine dependence
CPT/HCPCS: 36415; 80053; 83036; 83721; 84443; 85025; 96127; 99212; 99397